=== PATIENT | female | born 1990 | race Two or more races ===

== ENCOUNTER 2024-06-05 08:20 | Day surgery (SDC) | payer MEDICAID, SELFPAY ==
[2024-06-04 10:14] VITALS: BMI 31.3
[2024-06-04 11:34] LABS: Anion Gap 8 (7-16); BUN/Creatinine Ratio 14 Ratio (12-20); Beta HCG,Quantitative 1 mIU/mL (<5.0); Blood Urea Nitrogen 11 mg/dL (9-23); Calcium 9.6 mg/dL (8.3-10.6); Carbon Dioxide 27.5 mMol/L (20.0-31.0); Chloride 102 mMol/L (98-107); Creatinine (Component) 0.8 mg/dL (0.6-1.3); Estimated Creatinine Clearance 98.4 mL/min (>60); Glucose 86 mg/dL (74-106); Osmolality,Calculated 272 (275-295); Sodium 137 mMol/L (136-145); eGFR > 60 See Note
[2024-06-04 11:58] LABS: Basophils % (Auto) 1 % (0-2.5); Eosinophils # (Auto) 0.1 Thou/mm3 (0.0-0.5); Eosinophils % (Auto) 2 % (0-10); Hemoglobin 14.8 g/dL (12.0-16.0); Immature Granulocytes % (Auto) 1 % (0-0); Immature Granulocytes Auto 0.04 Thou/mm3 (0.00-0.00); Lymphocytes # (Auto) 2.1 Thou/mm3 (1.0-4.8); Lymphocytes % (Auto) 32 % (10-50); Mean Corpuscular HGB Conc 33.6 g/dl (31.0-37.0); Mean Corpuscular Hemoglobin 30.5 pg (25.0-35.0); Mean Corpuscular Volume 91 fL (80-100); Monocytes # (Auto) 0.5 Thou/mm3 (0.0-0.8); Monocytes % (Auto) 8 % (0-12); Neutrophils # (Auto) 3.8 Thou/mm3 (1.8-7.7); Neutrophils % (Auto) 57 % (37-80); Nucleated Red Blood Cell % 0 /100 WBC (0); Platelet Count 277 Thou/mm3 (140-440); RDW Standard Deviation 40.5 fL (36.4-46.3); Red Blood Count 4.86 Miln/mm3 (4.00-5.20); White Blood Count 6.6 Thou/mm3 (3.6-11.0)
--- NOTE | 2024-06-04 15:01 | SUR.PREOP ---
Pt notified to come in at 0830 tomorrow for surgery.
[2024-06-05] VITALS (7 sets, daily range): BP systolic 95–120; BP diastolic 69–82; PULSE 62–79; RESP 10–20; TEMP 36.4–36.9; O2SAT 96–100; BMI 31.1
[2024-06-05] MEDS: RINGERS LACTATED 1000 ML 1,000 ML 20 ML IV (09:23)
--- NOTE | 2024-06-05 10:32 | PD.SUROPNT ---
Date of Procedure 06/05/24 Pre Op Diagnosis Left upper back soft tissue mass Post Op Diagnosis Left upper back subfascial soft tissue mass Procedure Excision of large subfascial soft tissue mass from left upper back Findings An approximately 10 cm subfascial soft tissue mass of left upper back Procedure Description Patient brought into the operating room in supine position. After administration of general endotracheal anesthesia, patient was placed in the right lateral decubitus position. Her left upper back was prepped and draped in standard surgical manner. After administration of local anesthesia an approximately 10 cm elliptical incision was made and dissection was deepened into soft tissue. The fascia was divided. Subfascial mass was circumferentially dissected out surrounding tissue and underlying muscle. The mass was measuring to be approximately 10 cm in diameter, lipomatous in nature. The wound was washed and irrigated and hemostasis achieved using electrocautery. Fascia reapproximated with interrupted sutures using 2-0 Vicryl. Subcutaneous tissue closed with interrupted sutures using 3-0 Vicryl and the incision was closed with 4-0 Monocryl in subcuticular fashion. Dermabond applied. Sterile pressure dressings applied. Patient tolerated procedure well. She was placed in supine position and extubated. She was breathing spontaneously and without difficulty and was transferred to postanesthesia care in stable condition. Instruments, needles and sponge counts were reported to be correct x 2. Anesthesia GETA and local Pathology / specimen Other (Left upper back soft tissue mass) Estimated Blood Loss 10 Condition Stable Disposition PACU Surgeon Cristobal Bob MD Surgical Staff Operation Date: 06/05/24 10:30 <No data on this case meets the specified criteria>
--- NOTE | 2024-06-05 10:49 | SUR.PHASEI ---
pt received from OR in recovery bay 7. pt asleep but responds to voice, breathing unlabored on oxymask 8l. v/s stable. pt dressing to left upper back cdi. report received from Eneida HARRY and Dr. Wild.
--- NOTE | 2024-06-05 11:40 | SUR.PHASEII ---
pt able to tolerate oral fluids without difficulty swallowing or nausea/vomiting.
--- NOTE | 2024-06-05 11:45 | SUR.PHASEII ---
pt awake and alert, breathing unlabored on room air. v/s stable. pt dressing to left upper back cdi. pt able to ambulate to wheelchair with steady gait. d/c instructions given with s/o Adrien in room, all questions answered. pt d/c via wheelchair with all belongings.
== END 2024-06-05 11:45 | disposition home or self-care (01) ==
PROVIDERS: Referring Provider Surgery; Visit Provider Surgery
PROC: (CPT 21930; principal; 2024-06-05 10:15)
DX: D17.1 Benign lipomatous neoplasm of skin and subcutaneous tissue of trunk (principal)
CPT/HCPCS: 21930; 21933; 36415; 80048; 84702; 85025; A4217; A4649; J0690; J1100; J1885; J2250; J2405; J2704; J3010; J3490; J7120